=== PATIENT | female | born 1965 | race Caucasian/White ===

== ENCOUNTER → 2017-02-25 | Outpatient (CLI) | payer BC | LOC: KOH-I 08:00 | DX: M54.5 Low back pain (principal); M54.6 Pain in thoracic spine; M51.26 Other intervertebral disc displacement, lumbar region; M51.27 Other intervertebral disc displacement, lumbosacral region | CPT/HCPCS: 72146; 72148 ==

== ENCOUNTER → 2021-01-09 | Outpatient (CLI) | payer BC, OTHER | LOC: LAB 10:35 | DX: H90.3 Sensorineural hearing loss, bilateral (principal); E23.6 Other disorders of pituitary gland | CPT/HCPCS: 36415; 82565; 84520 ==

== ENCOUNTER → 2021-01-09 | Outpatient (CLI) | payer BC, OTHER | LOC: EMI 09:36 | DX: H90.3 Sensorineural hearing loss, bilateral (principal); R93.0 Abnormal findings on diagnostic imaging of skull and head, not elsewhere classified | CPT/HCPCS: 36415; 70553; 82565; 84520; A9577 ==

== ENCOUNTER 2022-03-08 09:04 | Emergency (ER) | payer BC ==
[2022-03-08 10:12] LABS: HEMOGLOBIN 15.2 gm/dl (12.3-15.3); RED BLOOD COUNT 4.91 M/UL (4.00-5.10)
[2022-03-08 10:48] LABS: BUN/CREATININE RATIO 25 (0-10)
[2022-03-08] MEDS ORDERED: BENTYL 20MG TAB20 MG PO (13:07)
== END 2022-03-08 13:14 | disposition home or self-care (01) ==
LOC: ER1 09:04
PROVIDERS: Emergency Medicine
DX: R10.10 Upper abdominal pain, unspecified (principal); E11.9 Type 2 diabetes mellitus without complications; E78.5 Hyperlipidemia, unspecified; I10 Essential (primary) hypertension
CPT/HCPCS: 80053; 81001; 83690; 85025; 99284; Q9967